=== PATIENT | male | born 1955 | race Caucasian/White ===

== ENCOUNTER 2023-05-01 11:28 | Day surgery (SDC) | payer MEDICARE, BC ==
[~2023-05-01 11:28] MED LIST: Lactated Ringers 1,000 ML IV SCH; Midazolam 1 MG/ML 2 ML SDV ONE; Propofol 200 MG/20 ML SDV ONE; Sodium Chloride 0.9% 10 ML Syringe FLUSH PRN
[2023-05-01 13:35] VITALS: BP 121/73; PULSE 80
== END 2023-05-01 14:03 | disposition home or self-care (01) ==
LOC: LL.SDS 11:28
PROVIDERS: ATTEND Surgery
DX: Z12.11 Encounter for screening for malignant neoplasm of colon (principal); K57.30 Diverticulosis of large intestine without perforation or abscess without bleeding; I10 Essential (primary) hypertension; I72.3 Aneurysm of iliac artery; E78.00 Pure hypercholesterolemia, unspecified; N40.1 Benign prostatic hyperplasia with lower urinary tract symptoms; R39.14 Feeling of incomplete bladder emptying; F51.01 Primary insomnia; Z86.010 Personal history of colon polyps; Z79.82 Long term (current) use of aspirin; Z79.899 Other long term (current) drug therapy; Z88.1 Allergy status to other antibiotic agents
CPT/HCPCS: 00812; J2250; J2704; J7120